=== PATIENT | male | born 1995 | race Caucasian/White ===

== ENCOUNTER 2018-12-08 00:25 | Emergency (ER) | payer BC ==
[~2018-12-08 00:25] MED LIST: Naprosyn500 MG PO; Robaxin500 MG PO
== END 2018-12-08 02:13 | disposition left against medical advice (07) ==
LOC: ER 00:25
DX: Z53.21 Procedure and treatment not carried out due to patient leaving prior to being seen by health care provider (principal)

== ENCOUNTER 2018-12-21 08:45 | Day surgery (SDC) | payer BC ==
[~2018-12-21] VITALS: Ht 172.7 cm; Wt 68.1 kg
--- NOTE | 2018-12-21 10:27 | NUR ---
12/21/18 Patsy7 Gale Kunz FIRST IV UNSUCCESS IN R HAND SECOND IV SUCCESS IN R AC
--- NOTE | 2018-12-21 12:26 | NUR ---
12/21/18 1226 Juanito Alamo PT STATED THAT HIS ABD CRAMPING HAD GONE AWAY AT TIME OF DISCHARGE.
== END 2018-12-21 12:13 | disposition home or self-care (01) ==
LOC: ORSCSDS 08:45
PROVIDERS: Student in an Organized Health Care Education/Training Program
PROC: 0DBB8ZX Excision of Ileum, Via Natural or Artificial Opening Endoscopic, Diagnostic (ICD-10-PCS; principal; 2018-12-21 10:45)
DX: K92.1 Melena (principal); K64.4 Residual hemorrhoidal skin tags; F17.210 Nicotine dependence, cigarettes, uncomplicated; Z79.899 Other long term (current) drug therapy
CPT/HCPCS: 88305; J2250; J7120

== ENCOUNTER 2021-02-03 23:27 | Emergency (ER) | payer BC ==
[~2021-02-03] VITALS: Ht 172.7 cm; Wt 77.1 kg
[2021-02-04 07:09] LABS: BASOPHILS ABSOLUTE AUTO 0.04 K/mm3 (0.00-0.23); BASOPHILS PERCENT AUTO 0 % (0-2); EOSINOPHILS ABSOLUTE AUTO 0.13 K/mm3 (0.00-0.68); EOSINOPHILS PERCENT AUTO 1 % (0-6); Hematocrit 40.6 % (37.0-53.0); Hemoglobin 14.3 g/dL (13.5-17.5); IMMATURE GRAN ABSOLUTE AUTO 0.05 K/mm3 (0.00-0.10); IMMATURE GRAN PERCENT AUTO 1 % (0-1); LYMPHOCYTES ABSOLUTE AUTO 1.44 K/mm3 (0.84-5.20); LYMPHOCYTES PERCENT AUTO 13 % (21-46); MONOCYTES ABSOLUTE AUTO 1.16 K/mm3 (0.16-1.47); MONOCYTES PERCENT AUTO 11 % (4-13); Mean Corpuscular HGB 28.9 pg (26.0-34.0); Mean Corpuscular HGB Conc 35.2 g/dL (31.5-36.5); Mean Corpuscular Volume 82 fL (80-100); Mean Platelet Volume 9.2 fL (9.1-12.4); NEUTROPHILS PERCENT AUTO 74 % (41-73); Platelet Count 250 K/mm3 (150-400); RDW Coefficient Variation 11.9 % (11.7-14.2); RDW Standard Deviation 35.4 fL (35.1-46.3); Red Blood Cell Count 4.94 M/mm3 (4.30-5.90); White Blood Cell Count 11.02 K/mm3 (4.00-11.30)
[2021-02-04 07:32] LABS: Anion Gap 6 mmol/L (6-16); Blood Urea Nitrogen 17 mg/dL (8-24); Bun/Creatinine Ratio 19.8 (12.0-20.0); CO2, Blood 26 mmol/L (21-32); Calcium, Blood 8.9 mg/dL (8.5-10.1); Chloride, Blood 108 mmol/L (98-108); Creatinine, Blood 0.86 mg/dL (0.60-1.20); Glomerular Filtration Rate >60 (60-); Glucose, Blood 106 mg/dL (70-99); Potassium, Blood 3.8 mmol/L (3.5-5.5); Sodium, Blood 140 mmol/L (136-145)
== END 2021-02-04 09:11 | disposition home or self-care (01) ==
LOC: ER 23:27
PROVIDERS: Emergency Medicine
DX: S82.009A Unspecified fracture of unspecified patella, initial encounter for closed fracture (principal); F17.200 Nicotine dependence, unspecified, uncomplicated; W55.19XA Other contact with horse, initial encounter
CPT/HCPCS: 29505; 36415; 73562-RT; 73706; 80048; 85025; 99284-25; A9270; Q9967

== ENCOUNTER → 2021-06-04 | Outpatient (CLI) | payer BC ==
[2021-06-06 10:22] LABS: CHLAMYDIA TRACHOMATIS, NAA Negative (Negative)
== END | disposition home or self-care (01) ==
LOC: LAB SHORT 09:56 → LAB 09:56
PROVIDERS: Physician Assistant
DX: Z72.51 High risk heterosexual behavior (principal)
CPT/HCPCS: 87070; 87205; 87491; 87591

== ENCOUNTER 2022-09-06 19:26 | Emergency (ER) | payer OTHER ==
[~2022-09-06] VITALS: Ht 177.8 cm; Wt 77.1 kg
== END 2022-09-06 20:35 | disposition home or self-care (01) ==
LOC: ER 19:26
DX: S71.112A Laceration without foreign body, left thigh, initial encounter (principal); W01.0XXA Fall on same level from slipping, tripping and stumbling without subsequent striking against object, initial encounter; F17.200 Nicotine dependence, unspecified, uncomplicated
CPT/HCPCS: 12001; 99282

== ENCOUNTER 2023-05-30 16:38 | Emergency (ER) | payer OTHER ==
[~2023-05-30] VITALS: Ht 177.8 cm; Wt 77.1 kg
[2023-05-30 16:49] VITALS: BP 140/68
== END 2023-05-30 18:00 | disposition home or self-care (01) ==
LOC: ER 16:38
DX: M25.561 Pain in right knee (principal); Z88.0 Allergy status to penicillin; F17.210 Nicotine dependence, cigarettes, uncomplicated
CPT/HCPCS: 73562-RT; 99283-25

== ENCOUNTER 2025-10-01 18:56 | Emergency (ER) | payer OTHER ==
[~2025-10-01] VITALS: Ht 175.3 cm; Wt 68.0 kg
[2025-10-01] MEDS ORDERED: ACET500 PO (20:15)
[2025-10-01] MEDS ORDERED: IBUP600 PO (20:15)
[2025-10-01 20:22] VITALS: BP 124/70
== END 2025-10-01 20:22 | disposition home or self-care (01) ==
LOC: ER 18:56
DX: M25.561 Pain in right knee (principal); F17.200 Nicotine dependence, unspecified, uncomplicated; Z88.0 Allergy status to penicillin
CPT/HCPCS: 73562-RT; 99283-25